=== PATIENT | female | born 1980 | race African-American/Black ===

== ENCOUNTER 2017-08-08 22:35 | Emergency (ER) | payer SELFPAY ==
[~2017-08-08] VITALS: Ht 172.7 cm; Wt 91.0 kg
[2017-08-08] MEDS ORDERED: LORAZEPAM 2MG/ML CPJ IM STA (23:51)
[2017-08-08] MEDS ORDERED: HALOPERIDOL LACTATE 5MG/ML VIAL IM STA (23:51)
[2017-08-09 00:18] LABS: BASOPHILS % 0.6 % (0.0-2.0); EOSINOPHILS % 0.7 % (0.0-5.0); HEMATOCRIT. 37.9 % (36.0-48.0); HEMOGLOBIN. 12.3 g/dL (12.0-16.0); LYMPHOCYTES % 31.8 % (20.0-50.0); MEAN CORPUSCULAR HEMOGLOBIN 29.8 pg (28.0-32.0); MEAN CORPUSCULAR VOLUME 91.6 fL (81.0-99.0); MEAN PLATELET VOLUME 8.6 fl (7.4-10.4); MONOCYTES % 6.6 % (2.0-8.0); NEUTROPHILS % 60.3 % (40.0-76.0); PLATELET 310 x1000/uL (130-400); RED BLOOD CELL COUNT 4.14 mill/uL (4.2-5.4)
[2017-08-09 00:22] LABS: CHLORIDE 111 mEq/L (98-107)
[2017-08-09 00:23] LABS: PROTHROMBIN TIME 10.9 sec (9.4-11.6)
[2017-08-09 00:38] LABS: ETHANOL BLOOD < 10 mg/dL
[2017-08-09] MEDS ORDERED: LORAZEPAM 1MG TABLET PO ONE (05:00)
[2017-08-09 07:04] LABS: CLARITY URINE CLEAR (CLEAR); COLOR URINE DARK YELLOW (YELLOW); KETONES URINE TRACE (NEGATIVE); LEUKOCYTE ESTERASE URINE NEGATIVE (NEGATIVE); NITRITE URINE NEGATIVE (NEGATIVE); OCCULT BLOOD URINE NEGATIVE (NEGATIVE); PH URINE 5.5 (4.5-8.0); PROTEIN URINE 1+ (NEGATIVE); SPECIFIC GRAVITY URINE 1.038 (1.005-1.030)
[2017-08-09 07:39] LABS: *AMPHETAMINES SCREEN URINE NEGATIVE (NEGATIVE); *BARBITURATES SCREEN URINE NEGATIVE (NEGATIVE); *BENZODIAZEPINES SCREEN URINE NEGATIVE (NEGATIVE); *COCAINE SCREEN URINE NEGATIVE (NEGATIVE); METHADONE URINE SCREEN NEGATIVE (NEGATIVE); OPIATES URINE SCREEN NEGATIVE (NEGATIVE); PHENCYCLIDINE URINE SCREEN NEGATIVE (NEGATIVE)
[2017-08-09 07:44] LABS: CANNABINOID URINE SCREEN PRESUMTIVE POSITIVE (NEGATIVE)
[2017-08-10] MEDS ORDERED: LORAZEPAM 1MG TABLET ONE (08:28)
[2017-08-10] MEDS ORDERED: LORAZEPAM 1MG TABLET PO SCH (09:55)
[2017-08-10 11:11] VITALS: BP 122/79
== END 2017-08-10 15:02 | disposition left against medical advice (07) ==
LOC: EDBD 22:45 → ER 22:45
DX: R45.850 Homicidal ideations (principal); F31.9 Bipolar disorder, unspecified; Y09 Assault by unspecified means
CPT/HCPCS: 36415; 80053; 80307; 80329; 83690; 84443; 85025; 85610; 96372; 99285; G0482; J1630; J2060